=== PATIENT | male | born 1970 | race Two or more races ===

== ENCOUNTER 2017-03-08 23:05 | Emergency (ER) | payer BC ==
[2017-03-09 00:38] LABS: ABSOLUTE BASOPHILS # (AUTO) 0.1 10^3/uL (0.0-0.2); ABSOLUTE EOSINOPHILS # (AUTO) 0.2 10^3/uL (0.0-0.6); ABSOLUTE LYMPHOCYTES (AUTO) 2.4 10^3/uL (0.5-4.7); ABSOLUTE MONOCYTES (AUTO) 0.8 10^3/uL (0.1-1.4); ABSOLUTE NEUT (AUTO) 5.7 10^3/uL (1.7-8.2); EOSINOPHILS % (AUTO) 2.1 % (0-6); HEMATOCRIT 42.7 % (37.9-51.0); HGB HCT DIFFERENCE -0.7; LYMPHOCYTES % (AUTO) 25.8 % (13-45); MEAN CORPUSCULAR HEMOGLOBIN 28.7 pg (27.0-33.4); MEAN CORPUSCULAR HGB CONC 32.7 g/dL (32.0-36.0); MEAN CORPUSCULAR VOLUME 88 fl (80-97); RED BLOOD COUNT 4.86 10^6/uL (4.35-5.55); RED CELL DISTRIBUTION WIDTH 14.1 % (11.5-14.0); SEGMENTED NEUTROPHILS % (AUTO) 62.1 % (42-78); WHITE BLOOD COUNT 9.3 10^3/uL (4.0-10.5)
[2017-03-09 00:53] LABS: ALANINE AMINOTRANSFERASE 27 U/L (21-72); ALBUMIN 3.8 g/dL (3.5-5.0); ALKALINE PHOSPHATASE 63 U/L (38-126); ANION GAP 11 (5-19); ASPARTATE AMINO TRANSFERASE 32 U/L (17-59); BILIRUBIN,DIRECT 0.2 mg/dL (0.0-0.4); BILIRUBIN,TOTAL 0.5 mg/dL (0.2-1.3); BLOOD UREA NITROGEN 18 mg/dL (7-20); CALCIUM 9.2 mg/dL (8.4-10.2); CARBON DIOXIDE 26 mmol/L (22-30); CHLORIDE 106 mmol/L (98-107); CREATINE KINASE 488 U/L (55-170); CREATININE RESULT 1.01 mg/dL (0.52-1.25); GLUCOSE 88 mg/dL (75-110); POTASSIUM 3.9 mmol/L (3.6-5.0); TOTAL PROTEIN 6.9 g/dL (6.3-8.2)
--- NOTE | 2017-03-09 00:58 | ER Document Report ---
ED General - General Chief Complaint: Numbness of Face Stated Complaint: FACIAL NUMBNESS Time Seen by Provider: 03/09/17 00:44 Notes: Patient is a 46-year-old male who comes emergency department for chief complaint of pain to the left side of his head above the ear and extending towards the top of the head but not crossing over to the other side of the head. He states that earlier in the afternoon he started developing tenderness to the area, he has an intermittent very sharp shooting pain in the area and it also feels tender to the touch. He also reports a numbness to the left side of the face in front of the ear. He did have chickenpox as a child. He states that also while he was sitting in his left leg started feeling numb although this resolved. Patient denies any vision changes, rash, injury, fever, he denies any daily medications or medical history. TRAVEL OUTSIDE OF THE [place] IN LAST 30 DAYS: No - Related Data Allergies/Adverse Reactions: No Known Allergies Allergy (Unverified 03/08/17 23:15) Past Medical History - General Information source: Patient - Social History Smoking Status: Never Smoker Frequency of alcohol use: None Drug Abuse: None Lives with: Family Family History: Reviewed & Not Pertinent Patient has suicidal ideation: No Patient has homicidal ideation: No - Medical History Medical History: Negative Renal/ Medical History: Denies: Hx Peritoneal Dialysis Surgical Hx: Negative - Immunizations Immunizations up to date: Yes Review of Systems - Review of Systems Constitutional: No symptoms reported EENT: No symptoms reported Cardiovascular: No symptoms reported Respiratory: No symptoms reported Gastrointestinal: No symptoms reported Genitourinary: No symptoms reported Male Genitourinary: No symptoms reported Musculoskeletal: No symptoms reported Skin: See HPI Hematologic/Lymphatic: No symptoms reported Neurological/Psychological: See HPI Physical Exam - Vital signs Vitals: Temp Pulse Resp BP Pulse Ox 97.9 F 61 16 149/84 H 99 03/08/17 23:11 03/08/17 23:11 03/08/17 23:11 03/08/17 23:11 03/08/17 23:11 Interpretation: Normal - General General appearance: Appears well, Alert In distress: None - HEENT Head: Normocephalic, Atraumatic Eyes: Normal Conjunctiva: Normal Extraocular movements intact: Yes Eyelashes: Normal Pupils: PERRL Tympanic membrane: Normal Sinus: Normal Nasal: Normal Mouth/Lips: Normal Mucous membranes: Normal Pharynx: Normal Neck: Normal - Respiratory Respiratory status: No respiratory distress Chest status: Nontender Breath sounds: Normal Chest palpation: Normal - Cardiovascular Rhythm: Regular Heart sounds: Normal auscultation Murmur: No - Abdominal Inspection: Normal Distension: No distension Bowel sounds: Normal Tenderness: Nontender Organomegaly: No organomegaly - Back Back: Normal, Nontender - Extremities General upper extremity: Normal inspection, Nontender, Normal color, Normal ROM , Normal temperature General lower extremity: Normal inspection, Nontender, Normal color, Normal ROM , Normal temperature, Normal weight bearing. 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 The area above the ear with reported tenderness to the touch and area has shooting pains that are intermittent, however there is no rash or obvious abnormality. Patient does not appear to be in any distress. Labs ordered by protocol reviewed, EKG is normal with no ischemic findings or arrhythmia, CBC unremarkable, chemistry unremarkable. Discussed with Dr. Alvarado, he does recommend a CAT scan of the head, if this is normal he agrees with treating patient for possible early shingles development. CAT scan of the head performed and negative, discussed with patient, patient is very agreeable to starting treatment for shingles as this is the top differential at the moment. Discussed follow-up, discussed return precautions, patient states understanding and agreement. - Vital Signs Vital signs: Temp Pulse Resp BP Pulse Ox 98 F 72 20 138/80 H 98 03/09/17 03:47 03/09/17 03:47 03/09/17 03:47 03/09/17 03:47 03/09/17 03:47 - Laboratory Result Diagrams: 03/09/17 00:26 03/09/17 00:26 Laboratory results interpreted by me: 06/12/17 06/12/17 00:26 00:26 RDW 14.1 H Creatine Kinase 488 H Discharge - Discharge Clinical Impression: Numbness and tingling Head pain Qualifiers: Headache type: unspecified Headache chronicity pattern: unspecified pattern Intractability: not intractable Qualified Code(s): R51 - Headache Disposition: HOME, SELF-CARE Additional Instructions: The cat scan of your head and laboratory workup are unremarkable. Your symptoms are slightly non-specific, however they are concerning for early shingles. You may develop a painful or itchy rash over the areas in question. Take the valtrex and prednisone as prescribed, take the percocet if needed for pain. Follow up with primary care referral. Return to the ED for any concerning or worsening symptoms. Prescriptions: Oxycodone HCl/Acetaminophen [Percocet 5-325 mg Tablet] 1 - 2 tab PO Q4H PRN #20 tablet PRN Reason: Prednisone 20 mg PO DAILY #15 tablet Valacyclovir HCl [Valtrex 500 Mg Tablet] 1,000 mg PO ASDIR PRN #42 tablet PRN Reason: Forms: Return to Work Referrals: CHAPO PEREZ MD [Primary Care Provider] - Follow up as needed
--- NOTE | 2017-03-09 02:41 | RADIOLOGY REPORT (SQ) ---
EXAM DESCRIPTION: CT HEAD WITHOUT COMPLETED DATE/TIME: 03/09/2017 2:18 am REASON FOR STUDY: headache, left leg numbness COMPARISON: None. TECHNIQUE: Axial images acquired through the brain without intravenous contrast. Images reviewed wi th bone, brain and subdural windows. Images stored on PACS. All CT scanners at this facility use dose modulation, iterative reconstruction, and/or weight based d osing when appropriate to reduce radiation dose to as low as reasonably achievable (ALARA). [facility]: Dose Right [facility]: CareDose [facility]: Dose Right [facility]: Teradose 4D [facility]: Motionbox RADIATION DOSE: 1,292. LIMITATIONS: None. FINDINGS: VENTRICLES: Normal size and contour. CEREBRUM: No masses. No hemorrhage. No midline shift. Normal paulson/white matter differentiation. N o evidence for acute infarction. CEREBELLUM: No masses. No hemorrhage. No alteration of density. No evidence for acute infarction. EXTRAAXIAL SPACES: No fluid collections. No masses. ORBITS AND GLOBE: No intra- or extraconal masses. Normal contour of globe without masses. CALVARIUM: No fracture. PARANASAL SINUSES: No fluid or mucosal thickening. SOFT TISSUES: No mass or hematoma. OTHER: No other significant finding. IMPRESSION: NORMAL BRAIN CT WITHOUT CONTRAST. TECHNICAL DOCUMENTATION: JOB ID: [id number] Quality ID # [id number]: Final reports with documentation of one or more dose reduction techniques (e.g., Au tomated exposure control, adjustment of the mA and/or kV according to patient size, use of iterative reconstruction technique) 2010 [employer]- All Rights Reserved
[2017-03-09] MEDS ORDERED: OXYCODONE-ACETAMINOPHEN 5-325 MG TABLET PO ONE (02:47)
[2017-03-09] MEDS ORDERED: VALACYCLOVIR HCL 500 MG TABLET PO ONE (02:47)
[2017-03-09 03:49] VITALS: BP 138/80
--- NOTE | 2017-03-09 09:48 | EKG REPORT ---
SEVERITY:- NORMAL ECG - SINUS RHYTHM : Confirmed by: Baldo Russell 09-Mar-2017 09:47:37
== END 2017-03-09 03:47 | disposition home or self-care (01) ==
LOC: ER 23:05
DX: R20.0 Anesthesia of skin (principal); R51 Headache
CPT/HCPCS: 36415; 70450; 80053; 82550; 82553; 84484; 85025; 93005; 93010; 99284